=== PATIENT | female | born 1965 | race Hispanic/Latino ===

== ENCOUNTER 2021-08-18 15:21 | Outpatient (CLI) | payer OTHER | END 2021-08-18 15:22 | disposition home or self-care (01) | LOC: BICULT 15:21 | PROVIDERS: ATTEND Urology | DX: E27.8 Other specified disorders of adrenal gland (principal); R93.41 Abnormal radiologic findings on diagnostic imaging of renal pelvis, ureter, or bladder | CPT/HCPCS: 76770 ==

== ENCOUNTER 2021-09-17 09:25 | Outpatient (CLI) | payer OTHER | END 2021-09-17 09:26 | disposition home or self-care (01) | LOC: ULT 09:25 | PROVIDERS: ATTEND Internal Medicine Gastroenterology | DX: K59.00 Constipation, unspecified (principal); K76.0 Fatty (change of) liver, not elsewhere classified; K63.89 Other specified diseases of intestine; K30 Functional dyspepsia; N28.89 Other specified disorders of kidney and ureter; R14.0 Abdominal distension (gaseous) | CPT/HCPCS: 76700 ==